=== PATIENT | male | born 1995 | race African-American/Black ===

== ENCOUNTER 2016-04-14 13:14 | Emergency (ER) | payer OTHER ==
[2016-04-14] MEDS ORDERED: ONDANSETRON 4 MG ORAL DISINTEGRATING TAB (S0181) As Ordered ONE (14:58)
[2016-04-14] MEDS ORDERED: ACETAMINOPHEN 325 MG TAB As Ordered ONE (14:59)
--- NOTE | 2016-04-14 15:26 | REP ---
CT Head without contrast HISTORY: Headache COMPARISON: None There is no intraparenchymal hemorrhage, acute infarct, mass or midline shift. The ventricular system is normal in appearance. There is no extra cerebral collection. There is no fracture. A retention cyst or polyp is present in the right maxillary sinus. IMPRESSION: There is no intracranial lesion. Signed by Guanako Oden MD 04/14/2016 03:17 P
--- NOTE | 2016-04-14 15:30 | REP ---
CT cervical spine without contrast HISTORY: Neck pain COMPARISON: None There is no acute fracture or subluxation. There is no disc bulge or herniation. The spinal canal and neural foramina are patent. The intervertebral discs and vertebral bodies are normal in height. IMPRESSION: There is no acute fracture or subluxation. Signed by Guanako Oden MD 04/14/2016 03:21 P
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
== END 2016-04-14 16:37 | disposition home or self-care (01) ==
LOC: M ED 13:14
DX: S13.4XXA Sprain of ligaments of cervical spine, initial encounter (principal); R51 Headache; V49.50XA Passenger injured in collision with unspecified motor vehicles in traffic accident, initial encounter; Y92.410 Unspecified street and highway as the place of occurrence of the external cause